=== PATIENT | female | born 1985 | race African-American/Black ===

== ENCOUNTER 2021-05-11 20:24 | Emergency (ER) | payer MEDICAID ==
[~2021-05-11] VITALS: Ht 177.8 cm; Wt 75.0 kg
[2021-05-11] MEDS ORDERED: METOCLOPRAMIDE HCL 10MG/2ML VIAL IV STA (21:02)
[2021-05-11] MEDS ORDERED: MORPHINE SULFATE 4 MG/ML CPJ (NOT FOR IM USE) IV STA (21:02)
[2021-05-11 21:12] VITALS: BP 109/74
[2021-05-11] MEDS ORDERED: SODIUM CHLORIDE 0.9% 1,000 ML IV ONE (21:15)
[2021-05-11 21:19] LABS: HEMATOCRIT. 35.7 % (36.0-48.0); HEMOGLOBIN. 11.4 g/dL (12.0-16.0); MEAN CORPUSCULAR HEMOGLOBIN 26.7 pg (28.0-32.0); MEAN CORPUSCULAR VOLUME 83.3 fL (81.0-99.0); MEAN PLATELET VOLUME 8.1 fl (7.4-10.4); PLATELET 372 x1000/uL (130-400); RED BLOOD CELL COUNT 4.28 mill/uL (4.2-5.4); RED CELL DISTRIBUTION WIDTH 13.3 % (11.6-14.6)
[2021-05-11 21:24] LABS: CHLORIDE 110 mEq/L (98-107)
[2021-05-11 21:31] LABS: HCG SCREEN NEGATIVE
[2021-05-11 21:42] LABS: PLATELET ESTIMATE NORMAL
[2021-05-11] MEDS ORDERED: CEFTRIAXONE SODIUM 250 MG/VIAL IM ONE (23:45)
[2021-05-11] MEDS ORDERED: AZITHROMYCIN 500 MG TABLET PO ONE (23:45)
[2021-05-11] MEDS ORDERED: METR-167 MT (23:59)
[2021-05-11] MEDS ORDERED: DOXY150T5 MT (23:59)
[2021-05-15 04:07] LABS: NEISSERIA GONORRHOEAE NAA Negative (Negative)
== END 2021-05-12 00:08 | disposition home or self-care (01) ==
LOC: ER 20:24
DX: N73.0 Acute parametritis and pelvic cellulitis (principal)
CPT/HCPCS: 36415; 74176; 80053; 83690; 84703; 85025; 87210; 87491; 87591; 96361; 96372; 96374; 96375; 99284; J0696; J2270; J2765; J7030; Z7610

== ENCOUNTER 2021-05-21 15:38 | Emergency (ER) | payer MEDICAID ==
[~2021-05-21] VITALS: Ht 170.2 cm; Wt 81.0 kg
[~2021-05-21 15:38] MED LIST: DOXY150T5 MT; METR-167 MT
[2021-05-21] MEDS ORDERED: ONDANSETRON HCL 4MG/2ML INJ IV STA (15:55)
[2021-05-21] MEDS ORDERED: KETOROLAC 30MG/ML VIAL IV STA (15:55)
[2021-05-21] MEDS ORDERED: SODIUM CHLORIDE 0.9% 1,000 ML IV ONE (16:00)
[2021-05-21 16:23] LABS: BASOPHILS % 0.3 % (0.0-2.0); EOSINOPHILS % 0.1 % (0.0-5.0); HEMOGLOBIN. 11.5 g/dL (12.0-16.0); LYMPHOCYTES % 9.3 % (20.0-50.0); MEAN CORPUSCULAR HEMOGLOBIN 27.2 pg (28.0-32.0); MEAN CORPUSCULAR VOLUME 82.6 fL (81.0-99.0); MEAN PLATELET VOLUME 7.5 fl (7.4-10.4); MONOCYTES % 2.2 % (2.0-8.0); NEUTROPHILS % 88.1 % (40.0-76.0); PLATELET 568 x1000/uL (130-400); RED BLOOD CELL COUNT 4.24 mill/uL (4.2-5.4); RED CELL DISTRIBUTION WIDTH 13.2 % (11.6-14.6)
[2021-05-21 16:28] LABS: CHLORIDE 109 mEq/L (98-107)
[2021-05-21 16:29] LABS: HCG SCREEN NEGATIVE
[2021-05-21] MEDS ORDERED: CEFTRIAXONE 1 G PREMIX 50 ML IV NR (17:30)
[2021-05-21] MEDS ORDERED: MORPHINE SULFATE 4 MG/ML CPJ (NOT FOR IM USE) IV NR (17:52)
[2021-05-21] MEDS ORDERED: ONDANSETRON HCL 4MG/2ML INJ IV NR (17:52)
[2021-05-21] MEDS: SODIUM CHLORIDE 0.9% 1000ML BAG (SEPSIS BOLUS) IV NR ×2 (18:15→18:37)
[2021-05-21 19:03] LABS: CLARITY URINE CLOUDY (CLEAR); COLOR URINE YELLOW (YELLOW); KETONES URINE 2+ (NEGATIVE); LEUKOCYTE ESTERASE URINE NEGATIVE (NEGATIVE); NITRITE URINE NEGATIVE (NEGATIVE); OCCULT BLOOD URINE NEGATIVE (NEGATIVE); PH URINE 7.5 (4.5-8.0); PROTEIN URINE NEGATIVE (NEGATIVE); SPECIFIC GRAVITY URINE 1.022 (1.005-1.030); UROBILINOGEN URINE 0.2 E.U./dL (0.2-1.0)
[2021-05-21 19:34] LABS: *AMPHETAMINES SCREEN URINE NEGATIVE (NEGATIVE); *BARBITURATES SCREEN URINE NEGATIVE (NEGATIVE); *COCAINE SCREEN URINE NEGATIVE (NEGATIVE)
[2021-05-21 19:35] LABS: METHADONE URINE SCREEN NEGATIVE (NEGATIVE); OPIATES URINE SCREEN NEGATIVE (NEGATIVE); PHENCYCLIDINE URINE SCREEN NEGATIVE (NEGATIVE)
[2021-05-21 19:36] LABS: *BENZODIAZEPINES SCREEN URINE NEGATIVE (NEGATIVE)
[2021-05-21 19:44] LABS: CANNABINOID URINE SCREEN PRESUMTIVE POSITIVE (NEGATIVE)
[2021-05-21] MEDS ORDERED: ONDA4TAB5 MT (20:48)
[2021-05-21] MEDS ORDERED: IBUP-2028 MT (20:48)
[2021-05-21 21:45] VITALS: BP 118/52
== END 2021-05-21 21:50 | disposition home or self-care (01) ==
LOC: ER 15:38
DX: R10.9 Unspecified abdominal pain (principal); E86.0 Dehydration; F12.90 Cannabis use, unspecified, uncomplicated; Z87.898 Personal history of other specified conditions
CPT/HCPCS: 36415; 71045; 76830; 76856; 80053; 80305; 81003; 83605; 83690; 84145; 84703; 85025; 87040; 87086; 96361; 96365; 96375; 96376; 99285; J0696; J1885; J2270; J2405; J7030; J7040

== ENCOUNTER 2022-03-28 08:02 | Inpatient (IN) | payer MEDICAID ==
[~2022-03-28] VITALS: Ht 167.6 cm; Wt 74.4 kg
[~2022-03-28 08:02] MED LIST changes: +IBUP-2028 MT; +ONDA4TAB5 MT
[2022-03-28] MEDS ORDERED: METHYLERGONOVINE MALEATE 0.2 MG/ML IM PRN (09:30)
[2022-03-28] MEDS ORDERED: CARBOPROST TROMETHAMINE 250 MCG/ML AMPUL IM PRN (09:30)
[2022-03-28] MEDS ORDERED: LIDOCAINE HCL 1% 20ML VIAL (Pyxis) INJ INFIL SCH (09:30)
[2022-03-28] MEDS ORDERED: NALOXONE HCL 0.4 MG/ML 1ML VIAL IM PRN (09:30)
[2022-03-28] MEDS ORDERED: RHO(D) IMMUNE GLOBULIN 300 MCG/SYR IM SCH (09:30)
[2022-03-28] MEDS ORDERED: BUTORPHANOL TARTRATE 2 MG/ML VIAL IV PRN (09:30)
[2022-03-28] MEDS ORDERED: PENICILLIN G POTASSIUM 5 MMU in DEXT 5% WATER 100 ML IV SCH (10:00)
[2022-03-28] MEDS ORDERED: ROPIVACAINE HCL/PF EPIDURAL 200 ML EPI ONE (10:36)
[2022-03-28] MEDS: LACTATED RINGERS 1,000 ML IV SCH ×3 (10:44→17:31)
[2022-03-28 11:00] LABS: CLARITY URINE CLEAR (CLEAR); COLOR URINE YELLOW (YELLOW); KETONES URINE NEGATIVE (NEGATIVE); LEUKOCYTE ESTERASE URINE 1+ (NEGATIVE); NITRITE URINE NEGATIVE (NEGATIVE); OCCULT BLOOD URINE NEGATIVE (NEGATIVE); PROTEIN URINE NEGATIVE (NEGATIVE); SPECIFIC GRAVITY URINE 1.019 (1.005-1.030); UROBILINOGEN URINE 0.2 E.U./dL (0.2-1.0)
[2022-03-28 11:06] LABS: BASOPHILS % 0.2 % (0.0-2.0); EOSINOPHILS % 0.6 % (0.0-5.0); HEMATOCRIT. 25.7 % (36.0-48.0); HEMOGLOBIN. 8.5 g/dL (12.0-16.0); LYMPHOCYTES % 7.1 % (20.0-50.0); MEAN CORPUSCULAR HEMOGLOBIN 26.5 pg (28.0-32.0); MEAN CORPUSCULAR VOLUME 80.4 fL (81.0-99.0); MEAN PLATELET VOLUME 7.7 fl (7.4-10.4); MONOCYTES % 4.3 % (2.0-8.0); NEUTROPHILS % 87.8 % (40.0-76.0); PLATELET 333 x1000/uL (130-400); RED CELL DISTRIBUTION WIDTH 18.8 % (11.6-14.6)
[2022-03-28 11:08] LABS: INR 0.9; PARTIAL THROMBOPLASTIN TIME 29.6 sec (23.4-31.0); PROTHROMBIN TIME 10.1 sec (9.6-11.0)
[2022-03-28 11:09] VITALS: BP 100/50
[2022-03-28 11:18] LABS: *AMPHETAMINES SCREEN URINE NEGATIVE (NEGATIVE); *BARBITURATES SCREEN URINE NEGATIVE (NEGATIVE); *BENZODIAZEPINES SCREEN URINE NEGATIVE (NEGATIVE); *COCAINE SCREEN URINE NEGATIVE (NEGATIVE); METHADONE URINE SCREEN NEGATIVE (NEGATIVE); OPIATES URINE SCREEN NEGATIVE (NEGATIVE); PHENCYCLIDINE URINE SCREEN NEGATIVE (NEGATIVE)
[2022-03-28 11:23] LABS: CANNABINOID URINE SCREEN PRESUMTIVE POSITIVE (NEGATIVE)
[2022-03-28 12:43] LABS: HEPATITIS B SURFACE ANTIGEN NEGATIVE
[2022-03-28] MEDS: PENICILLIN G POTASSIUM 2.5 MMU in DEXTROSE 5% WATER 50 ML IV SCH ×3 (14:50→22:27)
[2022-03-28] MEDS: OXYTOCIN 30 UNITS/500ML NS PMX 500 ML IV SCH (18:18)
[2022-03-29] MEDS ORDERED: IBUPROFEN 400MG TABLET PO PRN (00:30)
[2022-03-29] MEDS ORDERED: BISACODYL 10MG SUPP PR PRN (00:30)
[2022-03-29] MEDS ORDERED: BENZOCAINE/LANOLIN/ALOE VERA SPRAY TOP PRN (00:30)
[2022-03-29] MEDS ORDERED: OXYTOCIN 30 UNITS/500ML NS PMX 500 ML IV SCH (00:30)
[2022-03-29] MEDS ORDERED: ACETAMINOPHEN WITH CODEINE 300/30MG TABLET PO PRN (00:30)
[2022-03-29] MEDS ORDERED: LANOLIN OINT 7GM TUBE TOP PRN (00:30)
[2022-03-29] MEDS ORDERED: DIPHENHYDRAMINE 25MG CAPSULE PO PRN (00:30)
[2022-03-29] MEDS ORDERED: METHYLERGONOVINE MALEATE 0.2 MG/ML IM PRN (00:30)
[2022-03-29] MEDS ORDERED: HEMORRHOIDAL SUPP PR PRN (00:30)
[2022-03-29] MEDS ORDERED: RHO(D) IMMUNE GLOBULIN 300 MCG/SYR IM PRN (00:30)
[2022-03-29] MEDS ORDERED: PENICILLIN G BENZATHINE 2,400,000 UNITS/4ML SYR IM SCH (00:30)
[2022-03-29] MEDS ORDERED: GLYCERIN/WITCH HAZEL LEAF MEDICATED PAD TOP PRN (00:30)
[2022-03-29 02:00] VITALS: BP 99/49
[2022-03-29] MEDS: IBUPROFEN 800MG TABLET PO PRN ×2 (02:11→09:37)
[2022-03-29] MEDS: OXYTOCIN 30 UNITS/500ML NS PMX 500 ML IV SCH (02:29)
[2022-03-29 04:00] VITALS: BP 98/50
[2022-03-29 08:00] VITALS: BP 93/60
[2022-03-29] MEDS: PRENATAL VIT/FE FUMARATE/FA TABLET PO SCH (09:37)
[2022-03-29 16:00] VITALS: BP 97/63
[2022-03-29] MEDS: DOCUSATE SODIUM 100MG CAPSULE PO SCH (21:11)
[2022-03-29 22:00] VITALS: BP 115/49
[2022-03-30 05:38] VITALS: BP 104/60
[2022-03-30 07:26] LABS: BASOPHILS % 0.2 % (0.0-2.0); EOSINOPHILS % 2.2 % (0.0-5.0); HEMATOCRIT. 26.1 % (36.0-48.0); HEMOGLOBIN. 8.5 g/dL (12.0-16.0); LYMPHOCYTES % 25.2 % (20.0-50.0); MEAN CORPUSCULAR HEMOGLOBIN 26.5 pg (28.0-32.0); MEAN CORPUSCULAR VOLUME 81.8 fL (81.0-99.0); MEAN PLATELET VOLUME 7.9 fl (7.4-10.4); MONOCYTES % 4.3 % (2.0-8.0); NEUTROPHILS % 68.1 % (40.0-76.0); PLATELET 335 x1000/uL (130-400); RED CELL DISTRIBUTION WIDTH 18.7 % (11.6-14.6)
[2022-03-30 08:00] VITALS: BP 110/45
[2022-03-30] MEDS: PRENATAL VIT/FE FUMARATE/FA TABLET PO SCH (08:23)
[2022-03-30] MEDS: FERROUS SULFATE 325MG TABLET PO SCH ×2 (08:23→12:59)
[2022-03-30 16:00] VITALS: BP 102/64
[2022-03-30 20:00] VITALS: BP 115/56
[2022-03-30] MEDS: DOCUSATE SODIUM 100MG CAPSULE PO SCH (21:14)
[2022-03-31 04:05] VITALS: BP 101/54
[2022-03-31] MEDS ORDERED: IBUP-2030 PO (07:36)
[2022-03-31 08:00] VITALS: BP 101/46
[2022-03-31] MEDS: PRENATAL VIT/FE FUMARATE/FA TABLET PO SCH (09:14)
[2022-03-31] MEDS: FERROUS SULFATE 325MG TABLET PO SCH (09:14)
== END 2022-03-31 16:30 | disposition home or self-care (01) | DRG 560 ==
LOC: OBSVTOIN 08:02 → 8 EST LDRP 08:02 → 8EST 03-29 01:55
PROVIDERS: ADMIT Specialist; ATTEND Specialist
PROC: 10E0XZZ Delivery of Products of Conception, External Approach (ICD-10-PCS; principal; 2022-03-28)
PROC: 3E0R3BZ Introduction of Anesthetic Agent into Spinal Canal, Percutaneous Approach (ICD-10-PCS; 2022-03-28)
PROC: 00HU33Z Insertion of Infusion Device into Spinal Canal, Percutaneous Approach (ICD-10-PCS; 2022-03-28)
PROC: 0W8NXZZ Division of Female Perineum, External Approach (ICD-10-PCS; 2022-03-28)
DX: O99.02 Anemia complicating childbirth (principal); Z37.0 Single live birth; O98.12 Syphilis complicating childbirth; O99.324 Drug use complicating childbirth; Z3A.39 39 weeks gestation of pregnancy; O99.344 Other mental disorders complicating childbirth; F31.30 Bipolar disorder, current episode depressed, mild or moderate severity, unspecified; O99.345 Other mental disorders complicating the puerperium; F53.0 Postpartum depression; F12.10 Cannabis abuse, uncomplicated; Z20.822 Contact with and (suspected) exposure to COVID-19; Z59.01 Sheltered homelessness; Z86.19 Personal history of other infectious and parasitic diseases
CPT/HCPCS: 36415; 76805; 76818; 80305; 80349; 81003; 85025; 86592; 86593; 86703; 86762; 86780; 86850; 86870; 86900; 87340; 87426; 99281; G0378; J0561; J2540; J2795; J7060; J7120; A4315; J2590